=== PATIENT | female | born 1945 | race Caucasian/White ===

== ENCOUNTER 2022-05-22 01:00 | Day surgery (SDC) | payer MEDICARE, MEDICAID, SELFPAY ==
[2022-05-08 15:32] VITALS: BMI 35.6
--- NOTE | 2022-05-08 16:04 | PC.NURSE ---
Report to the Outpatient Waiting Room, entrance under the green pavilion located off [facility], at time _6:30AM on date __05/22/22 . OR Time: __8:30AM . - You and your visitor will be asked a series of questions to screen for COVID 19 for your protection. - Only one visitor is allowed at this time. - The patient visitor is requested to leave or wait in car when not with patient. - A mask is required within the hospital. Patients may have clear liquids (water, carbonated beverages, clear teas, apple juice) until 3 hours prior to surgery with a maximum of 20 ounces. - No food from midnight until time of surgery Take the following medications with a SIP of water the morning of surgery: __METOPROLOL Medications to discontinue per physician ____HOLD ALL VITAMINS/SUPPLEMENT 3 DAYS PRE-OP Date to take last dose___05/18/22 Please no make-up, nail malagasy, hairspray, perfume, deodorant, or body powder the day of surgery. No jewelry (including any body piercings) or valuables the day of surgery, leave them at home. Please take a shower or bath the night before, or the morning of, surgery with an antibacterial soap. Wear comfortable, loose fitting clothing. Children are encouraged to wear pajamas. - Jewelry must be removed prior to entering the operating room. Rings and piercings that are not removed may be cut off. - The hospital will not accept responsibility for valuables. - Please leave all valuables, including medications, at home the day of surgery. If you are going home after surgery, a licensed fork truck driver must drive you home. - NO public transportation without another adult. - We recommend that an adult stay with you for 24 hours following discharge. - We also recommend that you do not drive, make important decision, drink alcoholic beverages, or take any drugs that were not prescribed by your health care provider for at least 24 hours after your discharge time. Follow any additional instructions given to you from your surgeon. If you or anyone in your household have experienced Covid symptoms in the past week, please notify your surgeon or the nurse liaison at the phone number below for possible testing. Telephone instructions given to __PATIENT and asked if any additional questions and then verbalized understanding. Patient advised to call surgeon office or pre surgery nurse liaison [phone] if any additional questions.
--- NOTE | 2022-05-21 17:56 | PM.IMHP ---
H&P: HPI History of Present Illness Date/Time: 05/21/22 17:56 Chief Complaint: left flank mass Narrative: patient is a 76-year-old woman who has had a mass in the left flank and back for approximately 15 years. In the last 2-3 years, this has gotten significantly bigger. It is also painful particularly when she leans back in a chair or lies on that side in bed. She was seen in the office and noted to have a left flank fatty subcutaneous mass. Ultrasound was done and showed a left lumbar hernia. A CT scan of the area also confirmed a lumbar hernia. The size the defect is around 2 cm. After discussion, the patient is taken to surgery now for repair of left lumbar hernia. Review of Systems Review of Systems: All systems reviewed & are unremarkable except as noted in HPI and below ( HPI and those items noted below) Constitutional: Constitutional: Denies chills and Denies fever(s) Cardiovascular: Cardiovascular: Denies chest pain, Denies diaphoresis, Denies dyspnea and Denies paroxysmal nocturnal dyspnea Respiratory: Respiratory: Denies chest congestion, Denies cough and Denies dyspnea Integumentary/Breasts: Skin/Breast: Denies lesions and Denies rash [facility] Past Medical History Medical History AAA (abdominal aortic aneurysm) Arthritis CAD (coronary artery disease) DVT (deep venous thrombosis) Essential hypertension GERD (gastroesophageal reflux disease) Heart disease Hiatal hernia High cholesterol History of cystocele PO (obstructive sleep apnea) Salpingo-oophoritis Thyroid nodule Surgical History Surgical History H/O toe surgery S/P carpal tunnel release S/P tonsillectomy Family History Family History Sibling Heart disease Cerebrovascular accident Cancer Kidney disease Diabetes mellitus Hypertension Unknown Diabetes mellitus Heart disease Cerebrovascular accident Hypertension Tuberculosis Cancer Kidney disease Allergy Social History Social History Smoking status: Never smoker Alcohol intake: current Substance use: never Spiritual care concerns: No Meds Home Medications and Allergies Home Medications Medication Instructions Recorded Confirmed Type acetaminophen 650 mg 1,300 mg PO Q12H 10/22/21 05/08/22 History tablet,extended release (Tylenol 8 Hour) metoprolol succinate 25 mg 12.5 mg PO QAM 10/22/21 05/08/22 History tablet,extended release 24 hr multivitamin 1 tablet PO DAILY 10/22/21 05/08/22 History omega 0-eau-vxj-fish oil 60 mg-90 2 cap PO BID 10/22/21 05/08/22 History mg-500 mg capsule (Fish Oil) pseudoephedrine HCl 30 mg tablet 30 mg PO Q4-6H PRN Congestion 10/22/21 05/08/22 History (Sudafed) calcium carb-ergocalciferol (vit 1 tablet PO BID 05/08/22 05/08/22 History D2) 600 mg calcium-200 unit tablet coffee extract 50 mg-phosphatidyl 2 tablet PO QAM 05/08/22 05/08/22 History serine 50 mg chewable tablet (Neuriva Original) esomeprazole magnesium 20 mg 20 mg PO DAILY 05/08/22 05/08/22 History capsule,delayed release (Nexium) evolocumab 140 mg/mL subcutaneous 1 ea subcut [id number] 05/08/22 05/08/22 History pen injector (Tiny Valdez) Allergies Allergy/AdvReac Type Severity Reaction Status Date / Time latex Allergy Rash Verified 05/08/22 15:17 prednisone AdvReac Unknown GI upset Verified 05/08/22 15:16 amitriptyline AdvReac MENTAL Verified 05/08/22 15:28 STATUS CHANGES azithromycin AdvReac Gastrointestinal Verified 05/08/22 15:19 Upset, STOMACH BURNING celecoxib [From Celebrex] AdvReac CHEST Verified 05/08/22 15:28 HEAVINESS cephalexin [From Keflex] AdvReac Gastrointestinal Verified 05/08/22 15:18 Upset, STOMACH BURNING ciprofloxacin
[2022-05-22] VITALS (13 sets, daily range): BP systolic 144–195; BP diastolic 64–95; PULSE 54–74; RESP 10–18; TEMP 36–37; O2SAT 94–100
[2022-05-22] MEDS: ACETAMINOPHEN 500 MG TABLET 1000 MG PO (07:40)
[2022-05-22] MEDS: LACTATED RINGERS 1,000 ML 30 ML IV CONT (07:50)
--- NOTE | 2022-05-22 08:15 | WPDANESEPPF ---
Anes - Initial Pre Proc Eval Procedure: Operation Date: 05/22/22 08:30 Proposed Procedures p Repair of Left Lumbar Hernia with Mesh - Wenceslao Martínez MD Date/Time: 05/22/22 08:15 Surgeon: Wenceslao Martínez MD Pre Op Diagnosis: left lumbar hernia Patient Data Age: 76 Gender: F Height: 1.42 m Weight: 71.4 kg Last Vital Signs Temp 98.5 F 05/22/22 07:56 Pulse 71 05/22/22 07:56 Resp 16 05/22/22 07:56 BP 164/95 H 05/22/22 07:56 Pulse Ox 97 05/22/22 07:56 O2 Del Method Room Air 05/22/22 07:56 Allergies Allergy/AdvReac Type Severity Reaction Status Date / Time latex Allergy Rash Verified 05/22/22 07:29 prednisone AdvReac Unknown GI upset Verified 05/22/22 07:29 amitriptyline AdvReac MENTAL Verified 05/22/22 07:29 STATUS CHANGES azithromycin AdvReac Gastrointestinal Verified 05/22/22 07:29 Upset, STOMACH BURNING celecoxib [From Celebrex] AdvReac CHEST Verified 05/22/22 07:29 HEAVINESS cephalexin [From Keflex] AdvReac Gastrointestinal Verified 05/22/22 07:29 Upset, STOMACH BURNING ciprofloxacin AdvReac Gastrointestinal Verified 05/22/22 07:29 Upset, STOMACH BURNING montelukast AdvReac Migraine Verified 05/22/22 07:29 moxifloxacin [From Avelox] AdvReac Migraine Verified 05/22/22 07:29 NSAIDS (Non-Steroidal AdvReac Gastrointestinal Verified 05/22/22 07:29 Anti-Inflamma Upset, STOMACH BURNING Penicillins AdvReac Gastrointestinal Verified 05/22/22 07:29 Upset, STOMACH BURNING Sndcvcc-BVF-BsA Reductase AdvReac Muscle Verified 05/22/22 07:29 Inhibitor Pain/WEAKNESS Sulfa (Sulfonamide AdvReac Gastrointestinal Verified 05/22/22 07:29 Antibiotics) Upset, STOMACH BURNING Home Medications Medication Instructions Recorded Confirmed Type acetaminophen 650 mg 1,300 mg PO Q12H 10/22/21 05/22/22 History tablet,extended release (Tylenol 8 Hour) metoprolol succinate 25 mg 12.5 mg PO QAM 10/22/21 05/22/22 History tablet,extended release 24 hr multivitamin 1 tablet PO DAILY 10/22/21 05/22/22 History omega 1-azn-kjt-fish oil 60 mg-90 2 cap PO BID 10/22/21 05/22/22 History mg-500 mg capsule (Fish Oil) pseudoephedrine HCl 30 mg tablet 30 mg PO Q4-6H PRN Congestion 10/22/21 05/22/22 History (Sudafed) calcium carb-ergocalciferol (vit 1 tablet PO BID 05/08/22 05/22/22 History D2) 600 mg calcium-200 unit tablet coffee extract 50 mg-phosphatidyl 2 tablet PO QAM 05/08/22 05/22/22 History serine 50 mg chewable tablet (Neuriva Original) esomeprazole magnesium 20 mg 20 mg PO DAILY 05/08/22 05/22/22 History capsule,delayed release (Nexium) evolocumab 140 mg/mL subcutaneous 1 ea subcut [id number] 05/08/22 05/22/22 History pen injector (Tiny Valdez) Patient hx anesthesia problems: none Family hx anesthesia problems: none Results Review: All pre-operative results and documents have been reviewed as part of the pre-operative evaluation. [facility] Past Medical History Medical History AAA (abdominal aortic aneurysm) Arthritis CAD (coronary artery disease) DVT (deep venous thrombosis) Essential hypertension GERD (gastroesophageal reflux disease) Heart disease Hiatal hernia High cholesterol History of cystocele PO (obstructive sleep apnea) Salpingo-oophoritis Thyroid nodule Surgical History Surgical History H/O toe surgery S/P carpal tunnel release S/P tonsillectomy Family History Family History Sibling Heart disease Cerebrovascular accident Cancer Kidney disease Diabetes mellitus Hypertension Unknown Diabetes mellitus Heart disease Cerebrovascular accident Hypertension Tuberculosis Cancer Kidney disease Allergy Social History Social History (Re
[2022-05-22] MEDS: KETOROLAC 15 MG/ML VIAL (*BKC) IV PUSH (08:31)
--- NOTE | 2022-05-22 08:36 | WPDHPUPDATE1 ---
History and Physical Update Update Date/Time: 05/22/22 08:36 History and Physical has been reviewed, including an updated exam of the patient. There are NO changes in the patient's condition. Risks, benefits, and alternatives have been discussed and questions answered. Patient agrees to proceed with procedure.
[2022-05-22] MEDS: ceFAZolin 2 GM/D5W 50 ML 2 GM/50 ML BAG IVPB (08:51)
[2022-05-22] MEDS: BUPIVACAINE/EPINEPHRINE 0.25% 50 ML VIAL INFILTRATE (09:50)
--- NOTE | 2022-05-22 10:29 | W.PM.PROC2 ---
Procedure Note - Detailed Date of Procedure 05/22/22 Pre-op Diagnosis left lumbar hernia Post-op Diagnosis Same Procedure Performed Repair left lumbar hernia with 6.[address] underlay patch Surgeon Wenceslao Martínez MD Equine Manager Jennifer Romero METALLURGICAL OR MATERIALS TECHNICIAN Anesthesia General and Local (0.25% bupivacaine with epinephrine) Indications Patient has a left flank bulge which has been very bothersome to her when she leans back in a chair or tries to sleep. Imaging including ultrasound and CT scan have shown this to be a left lumbar hernia. After discussion, she is taken to surgery now for repair with mesh. Findings A small well-defined lumbar hernia was noted. This was the superior lumbar hernia variety. Large amount of properitoneal fat was chronically incarcerated in the hernia defect. Description of Procedure Patient was checked in the preoperative holding area. The site of the hernia was noted with the patient on her right side. She was then taken to surgery and induced into general anesthesia. She was carefully placed in right lateral decubitus position with a slight kidney rest under her right flank. Prep and drape was carried out. An incision was made just under the 12th rib in the posterior axillary line. Dissection was carried down through the subcutaneous. Latissimus was found. I was able to spread the fibers of the latissimus and lateral retraction visualize the hernia sac. I then elevated the sac and mobilized it from subcutaneous tissues and off of the 12th rib. There was a large amount of fatty material in the hernia. This appeared to be retroperitoneal fat. I dissected this back to the hernia defect. I then scored through and eventually divided all the fatty attachments to the herniated content. The herniated tissue was sent as a specimen. The hernia defect was then well defined. It appeared to be a superior triangle defect. I bluntly dissected the peritoneum off of the underside of the boundaries of the hernia defect. The posterior boundary was the quadratus lumborum muscle. There appeared to be a nerve running on this which I suspect was the ileoinguinal nerve. I used a 6.[address] hernia patch. It was placed in the defect. Inferior and superior transfascial sutures of 0 Ethibond were placed. Care was taken not to impinge the visible nerve. The transversalis fascia was then closed over the hernia defect with 0 Ethibond [id number] mattress sutures. Each of these incorporated a bit of mesh as well. The repair looked satisfactory. There was minimal tension. The mesh was adherent to the undersurface of the repair. I then loosely approximated the fibers of the latissimus. This was done with 3-0 Vicryl. Wolfgang's fascia was closed with interrupted 3-0 Vicryl suture. The skin was closed with subcuticular interrupted 4-0 Vicryl skin suture. The wound was dressed with Exofin surgical adhesive. Patient was awakened and taken to recovery in good condition. Sponge and needle counts were correct x2. Implants 6.[address] underlay mesh Estimated Blood Loss -5.0 Drains No Packing No Pathology Yes (Lumbar hernia contents) Complications No immediate complications Condition Stable Disposition PACU [facility] Billing Surgery - Charge Forward: Surgery Billing (Repair left lumbar hernia with mesh)
--- NOTE | 2022-05-22 11:07 | SUR.PHASEI ---
DR. MONZON AWARE OF PATIENT'S SLIGHTLYY ELEVATED BP'S. OKAY'D TO ADMIT; NO INTERVENTION AT THIS TIME.
--- NOTE | 2022-05-22 11:35 | ADMGEN ---
This patient, Simran Koroma, was admitted to Medical Room 255-. Patient/family oriented to hospital policies and general routines including ID bracelet, bed and alarms, visiting hours, pain management, procedures, bathroom and other care routines, personal items, smoking policy, room service/diet, and visiting hours. Information on how to activate the Rapid Response Team has been discussed. Patient/Family are encouraged to report perceived risks to care and to ask questions if they do not understand what they are told or what they should do.
[2022-05-22] MEDS: ACETAMINOPHEN 500 MG TABLET 1000 MG BY MOUTH (20:29)
[2022-05-22] MEDS: oxyCODONE HCL (*CRX) 2.5 MG TAB IR PO (23:32)
[2022-05-23 03:41] VITALS: BP 153/67; PULSE 54; RESP 18; TEMP 36.2; O2SAT 97
[2022-05-23] MEDS: oxyCODONE HCL (*CRX) 5 MG TAB IR PO (05:51)
[2022-05-23 06:09] LABS: Hematocrit 41.5 % (37.0-47.0); Hemoglobin 13.4 g/dL (12.0-15.0); Mean Corpuscular HGB Conc 32.3 g/dl (32-36); Mean Corpuscular Hemoglobin 30.5 pg (26-34); Mean Corpuscular Volume 94.3 fl (80-100); Mean Platelet Volume 10.3 fl (7.4-10.4); Platelet Count Result 234 k/mm3 (150-375); Red Cell Distribution Width 12.9 % (11.5-14.5); White Blood Count 9.6 K/mm3 (4.5-10.0)
[2022-05-23 06:28] LABS: Anion Gap 5 mmol/L (8-16); Blood Urea Nitrogen 15 mg/dL (7-17); Calcium 8.9 mg/dL (8.4-10.2); Carbon Dioxide 27 mmol/L (22-30); Chloride 106 mmol/L (98-107); Estimated Glomerular Filt Rate > 60; Glucose 99 mg/dL (65-110); Potassium 4.2 mmol/L (3.4-5.0); Sodium 138 mmol/L (137-145)
--- NOTE | 2022-05-23 07:49 | WPDANESPN ---
Anes - Prog Note Post-Op Date/Time: 05/23/22 07:49 Cardiovascular status: normal Respiratory status: normal Airway patency: baseline Mental status: baseline Post-Op hydration status: normal Vital Signs: Last Vital Signs Temp 36.2 C L 05/23/22 03:41 Pulse 54 L 05/23/22 03:41 Resp 18 05/23/22 03:41 BP 153/67 H 05/23/22 03:41 Pulse Ox 97 05/23/22 03:41 O2 Del Method Room Air 05/22/22 21:00 O2 Flow Rate 8 05/22/22 10:15 Pain Score (VAS): 12/25 I/O: Intake & Output 05/22/22 05/22/22 05/23/22 15:59 23:59 07:59 Intake Total 50 1240 740 Output Total 1200 Balance 50 40 740 Laboratory Tests 05/23/22 05:55 05/23/22 05:55 05/23/22 05/23/22 05:55 05:55 WBC 9.6 RBC 4.40 Hgb 13.4 Hct 41.5 MCV 94.3 MCH 30.5 MCHC 32.3 RDW 12.9 Plt Count 234 MPV 10.3 Sodium 138 Potassium 4.2 Chloride 106 Carbon Dioxide 27 Anion Gap 5 L BUN 15 Creatinine 0.70 Estim Creat Clear Calc Not Reportable Estimated GFR > 60 Glucose 99 Calcium 8.9 Post-procedural complaints: none Patient Feedback: Patient satisfied with anesthetic care.
[2022-05-23 08:00] VITALS: BP 150/66; PULSE 57; RESP 20; TEMP 36.3; O2SAT 99
[2022-05-23] MEDS: ACETAMINOPHEN 500 MG TABLET 1000 MG BY MOUTH (08:05)
[2022-05-23] MEDS: ENOXAPARIN 40 MG/0.4 ML SYRINGE SUB-Q (08:05)
[2022-05-23 08:06] VITALS: PULSE 60
[2022-05-23] MEDS: METOPROLOL SUCCINATE EXT REL 12.5 MG TABCR PO (08:06)
[2022-05-23] MEDS: PANTOPRAZOLE 40 MG TABLET PO (08:06)
--- NOTE | 2022-05-23 09:01 | PM.PNGS ---
Progress Note: A&P Assessment and Plan (1) Lumbar hernia: Code(s): K45.8 - Other specified abdominal hernia without obstruction or gangrene Status: Acute Assessment and Plan: doing well, c/o significant pain this am and overnight, will cont to observe for now, if better later today ok to dc home c po analgesia, encourage OOB/IS Subjective Subjective Date/Time Seen: 05/23/22 09:01 feels ok overall, reports severe L flank pain upon waking up today but better after pain pill, suzie breakfast without issue Review of Systems Review of Systems: All systems reviewed & are unremarkable except as noted in HPI and below Exam Const: General: cooperative, comfortable and no acute distress Resp: Auscultation: clear to auscultation bilaterally Cardio: Rate: regular rate Rhythm: regular rhythm GI: Inspection: normal to inspection and distended GI Palp: No abdominal tenderness and Yes Soft to palpation Back/Spine/Pelvis: Other: L flank wound - C/D/I Objective Data Vital Signs Vital Signs: Vital Signs - 24 hr 05/22/22 10:03 05/22/22 10:15 05/22/22 10:30 Temperature 36.5 C Pulse Rate 73 63 62 Respiratory Rate 16 13 10 L Blood Pressure 164/79 H 181/87 H 188/81 H Pulse Oximetry 99 100 100 Oxygen Delivery Simple Face Mask Simple Face Mask Room Air Oxygen Flow Rate 8 8 05/22/22 11:01 05/22/22 11:15 05/22/22 11:40 Temperature 36.4 C Pulse Rate 60 61 58 L Respiratory Rate 18 13 16 Blood Pressure 184/85 H 195/89 H 170/89 H Pulse Oximetry 100 100 98 Oxygen Delivery Room Air Room Air Oxygen Flow Rate 05/22/22 11:55 05/22/22 12:25 05/22/22 12:58 Temperature 36.4 C L 36.4 C L Pulse Rate 54 L 56 L Respiratory Rate 18 16 Blood Pressure 184/81 H 173/76 H Pulse Oximetry 98 96 Oxygen Delivery Room Air Oxygen Flow Rate 05/22/22 12:58 05/22/22 13:25 05/22/22 17:25 Temperature 36.3 C L 37.0 C Pulse Rate 65 70 Respiratory Rate 18 18 Blood Pressure 150/87 H 144/67 H Pulse Oximetry 97 94 Oxygen Delivery Room Air Oxygen Flow Rate 05/22/22 19:30 05/22/22 21:00 05/22/22 23:20 Temperature 36.2 C L 36.0 C L Pulse Rate 74 63 Respiratory Rate 18 18 Blood Pressure 159/80 H 146/64 H Pulse Oximetry 95 95 Oxygen Delivery Room Air Oxygen Flow Rate 05/23/22 03:41 05/23/22 08:06 05/23/22 08:00 Temperature 36.2 C L 36.3 C L Pulse Rate 54 L 60 57 L Respiratory Rate 18 20 Blood Pressure 153/67 H 150/66 H Pulse Oximetry 97 99 Oxygen Delivery Oxygen Flow Rate Intake/Output Intake/Output: Intake & Output 05/20/22 05/21/22 05/22/22 05/23/22 23:59 23:59 23:59 23:59 Intake Total 1290 740 Output Total 1200 Balance 90 740 Meds/Results Medications: Active Medications Generic Name Dose Route Start Last Admin Trade Name Freq PRN Reason Stop Dose Admin Acetaminophen 1,000 mg 05/22/22 21:00 05/23/22 08:05 Acetaminophen 500 Mg Tablet BY MOUTH 1,000 mg Q12H ESTELLA Administration Enoxaparin Sodium 40 mg 05/23/22 09:00 05/23/22 08:05 Enoxaparin 40 Mg/0.4 Ml Syringe SUB-Q 40 mg DAILY ESTELLA Administration Metoprolol Succinate 12.5 mg 05/23/22 09:00 05/23/22 08:06 Metoprolol Succinate Ext Rel 12.5 Mg Tabcr PO 12.5 mg QAM ESTELLA Administration Morphine Sulfate 2 mg 05/22/22 11:31 Morphine Sulfate (*Crx) 2 Mg/Ml Inj IV PUSH Q2H PRN Pain Rated 4-6 Morphine Sulfate 4 mg 05/22/22 11:31 Morphine Sulfate (*Crx) 4 Mg/Ml Inj IV PUSH Q2H PRN Pain Rated 7-10 Naloxone HCl 0.1 mg 05/22/22 11:31 Naloxone Hcl 0.4 Mg/Ml Vial IV PUSH Q2M PRN Opiate Reversal Ondansetron HCl 4 mg 05/22/22 11:31 Ondansetron Inj 4 Mg/2 Ml Vial IV PUSH Q4H PRN Nausea And Vomiting Oxycodone HCl 2.5 mg 05/22/22 11:31 05/22/22 23:32 Oxycodone Hcl (*Crx) 2.5 Mg Tab Ir PO 2.5 mg Q4H PRN Administration Pain Rated 4-6 Oxycodone HCl 5 mg 05/22/22 11:31 05/23/22 05:51
[2022-05-23 12:00] VITALS: BP 178/69; PULSE 52; RESP 20; TEMP 36.4; O2SAT 97
[2022-05-23 13:16] VITALS: BP 143/69; PULSE 56; RESP 20; TEMP 36.6; O2SAT 95
== END 2022-05-23 15:50 | disposition home or self-care (01) ==
LOC: ANHSURGERY 10:41 → ANH2MED 11:40
PROVIDERS: PCP Nurse Practitioner Family; Visit Provider Surgery
PROC: 0WQF0ZZ Repair Abdominal Wall, Open Approach (ICD-10-PCS; CPT 49540; principal; 2022-05-22 08:30)
DX: K45.8 Other specified abdominal hernia without obstruction or gangrene (principal); I25.10 Atherosclerotic heart disease of native coronary artery without angina pectoris; I11.9 Hypertensive heart disease without heart failure; E78.00 Pure hypercholesterolemia, unspecified; I71.4 Abdominal aortic aneurysm, without rupture; G47.33 Obstructive sleep apnea (adult) (pediatric); K21.9 Gastro-esophageal reflux disease without esophagitis; Z86.718 Personal history of other venous thrombosis and embolism; E66.9 Obesity, unspecified; Z68.35 Body mass index [BMI] 35.0-35.9, adult
CPT/HCPCS: 49540; 36415; 80048; 85027; 88302; A9270; C1781; J0690; J1100; J1650; J1885; J2370; J2405; J2704; J3010; J7120